=== PATIENT | male | born 1965 | race Hispanic/Latino ===

== ENCOUNTER 2016-12-20 20:09 | Emergency (ER) | payer MEDICAID ==
[2016-12-20 20:39] VITALS: TEMP 98.4; BMI 32.5
[2016-12-20 20:57] LABS: ADD MANUAL DIFF? NO
[2016-12-20 21:04] LABS: BASO # 0.01 K/mm3 (0.0-2.0); BASO % 0.1 % (0.0-3.0); EOS # 0.3 (0.0-0.7); EOS % 2.9 % (1.5-5.0); GRAN # 6.03 (1.4-6.5); GRAN % 61.6 % (50.0-68.0); HEMATOCRIT 43.6 % (42.0-52.0); LYMPH # 2.8 (1.2-3.4); LYMPH % 28.4 % (22.0-35.0); MEAN CELL VOLUME 93.4 fL (80.0-105.0); MEAN CORPUSCULAR HEMOGLOBIN 33.4 pg (25.0-35.0); MEAN CORPUSCULAR HGB CONC 35.8 g/dl (31.0-37.0); MEAN PLATELET VOLUME 8.9 fl (7.0-11.0); MONO # 0.7 (0.1-0.6); PLATELET COUNT 251 10^3/uL (120.0-450.0); RED CELL DISTRIBUTION WIDTH 12.7 % (11.5-14.5); WHITE BLOOD COUNT 9.8 10^3/ul (4.5-11.0)
[2016-12-20 21:12] LABS: URINE BILIRUBIN NEGATIVE (NEGATIVE); URINE BLOOD NEGATIVE (NEGATIVE); URINE GLUCOSE (UA) NEGATIVE (NEGATIVE); URINE KETONE NEGATIVE (NEGATIVE); URINE LEUKOCYTE ESTERASE NEGATIVE Leu/uL (NEGATIVE); URINE PROTEIN NEGATIVE mg/dL (<30 mg/dL); URINE UROBILINOGEN 0.2 E.U./dL (<1 E.U./dL)
[2016-12-20 21:14] LABS: ALB/GLOB RATIO 1.4 (1.1-1.8); ALKALINE PHOSPHATASE 121 U/L (38-133); ALT/SGPT 78 U/L (7-56); AST/SGOT 48 U/L (15-59); BILIRUBIN,TOTAL 0.5 mg/dL (0.2-1.3); BLOOD UREA NITROGEN 7 mg/dL (7-21); CALCIUM 9.6 mg/dL (8.4-10.5); CARBON DIOXIDE 22 mmol/L (21-33); CHLORIDE 105 mmol/L (98-107); GFR AFRICAN-AMERICAN > 60; GLUCOSE,RANDOM 95 mg/dL (70-110); POTASSIUM 3.9 mmol/L (3.6-5.0); SODIUM 141 mmol/L (132-148); URINE APPEARANCE CLEAR (CLEAR); URINE COLOR YELLOW (YELLOW)
--- NOTE | 2016-12-20 21:38 | ED PDOC ---
Arrival/HPI - General Historian: Patient, EMS - History of Present Illness Time/Duration: Prior to Arrival - General Chief Complaint: Psychiatric Evaluation Time Seen by Provider: 12/20/16 20:22 - History of Present Illness Narrative History of Present Illness (Text): 12/20/16 21:49 Patient is a 51 yo male presents to the Emergency Department with history of depression and "feeling like I need to end it". He states that he's "not sure if I feel sucidial" but feels as if he "can't take it". He states that he lost his job, has no money, can't pay his bills, and reportedly his brother called the ambulance for evaluation. He admits to drinking earlier in the day. Denies drug abuse. Denies any physical injury or falls. Denies overdose or suicidal attempts. Denies plan. He is a smoker. He has a history of hypertension but does not take medication. ( Horacio Granados) Past Medical History - Cardiac Hx Cardiac Disorders: Yes Hx Hypertension: Yes - Pulmonary Hx Respiratory Disorders: No (denies) - Neurological Hx Neurological Disorder: No (denies) - HEENT Hx HEENT Disorder: No (denies) - Renal Hx Renal Disorder: No (denies) - Endocrine/Metabolic Hx Endocrine Disorders: No (denies) - Hematological/Oncological Hx Blood Disorders: No (denies) - Integumentary Hx Dermatological Disorder: No (denies) - Musculoskeletal/Rheumatological Hx Musculoskeletal Disorders: No (denies) - Gastrointestinal Hx Gastrointestinal Disorders: Yes Hx Gastroesophageal Reflux: Yes - Genitourinary/Gynecological Hx Genitourinary Disorders: No (denies) - Psychiatric Hx Substance Use: Yes - Anesthesia Hx Anesthesia: No Family/Social History Family/Social History: Unknown Family HX Smoking Status: Heavy Smoker > 10 Cigarettes Daily Hx Alcohol Use: Yes Hx Substance Use: Yes Allergies/Home Meds Allergies/Adverse Reactions: Allergies No Known Allergies Allergy (Verified 12/20/16 20:40) Review of Systems - Review of Systems Constitutional: absent: Fevers Eyes: absent: Vision Changes ENT: absent: Hearing Changes Respiratory: absent: SOB Cardiovascular: absent: Chest Pain Gastrointestinal: absent: Abdominal Pain Genitourinary Male: absent: Frequency, Urinary Output Changes Musculoskeletal: absent: Arthralgias Skin: absent: Rash Neurological: absent: Headache, Dizziness, Focal Weakness Endocrine: absent: Polyuria Hemo/Lymphatic: absent: Easy Bleeding Psychiatric: Anxiety, Depression, Suicidal Ideation Physical Exam Vital Signs Reviewed: Yes Temperature: Afebrile Mental Status: Positive for: Alert and Oriented X 3, Agitated - Physical Exam Narrative Physical Exam (Text): Head: Atraumatic. Normocephalic. Eyes: PERRL. EOMI. Conjunctivae are not pale. ENT: Mucous membranes are moist and intact. Oropharynx is clear and symmetric. Neck: Supple. Full ROM. No JVD. No lymphadenopathy. Cardiovascular: Regular rate. Regular rhythm. No murmurs, rubs, or gallops. Distal pulses are 2+ and symmetric. Pulmonary/Chest: No evidence of respiratory distress. Clear to auscultation bilaterally. No wheezing, rales or rhonchi. Abdominal: Soft and non-distended. There is no tenderness. No rebound, guarding, or rigidity. No organomegaly. Good bowel sounds. Back: No CVA tenderness. No midline tenderness. Extremities: No edema. No cyanosis. No clubbing. Full range of motion in all extremities. No calf tenderness. Skin: Skin is warm and dry. No petechiae. No purpura. Neurological: Alert, awake, and oriented to person, place, time, and situation. No slurred speech. No facial droop. Motor and sensory exam intact. Not hyperreflexive. No pronator drift. No meningeal signs. Psychiatric: Patient is intermittently agitated and states "I'm going to lose it", but he is cooperative with verbal commands. Reports suicidal thoughts but no plan. Reports anxiety and depression. No hallucinations noted. 12/20/16 21:56 (Horacio Granados) Vital Signs Temp Pulse Resp BP Pulse Ox 12/21/16 11:16 80 16 164/88 H 98 12/21/16 09:15 82 16 139/80 96 12/21/16 07:16 72 16 145/85 98 12/21/16 02:30 105 H 20 163/96 H 95 12/21/16 01:40 95 H 16 142/76 95 12/20/16 22:25 107 H 16 135/48 L 98 12/20/16 22:00 114 H 16 142/87 97 12/20/16 20:09 98.4 F 99 H 18 146/85 94 L Medical Decision Making - EKG Interpretation Interpreted by ED Physician: Yes Type: 12 lead EKG Comparison: No previous EKG avail. ED Course and Treatment: 12/20/16 21:58 Patient on initial evaluation is cooperative but is threatening that he "wants to end it", but then states "I'm not sure if I'm suicidal". He admits to drinking but is alert and oriented with steady gait, normal speech, no motor or sensory deficits. He denies headache or chest pain or shortness of breath. He reports that he feels very angry but denies homicidal ideation. No family members present at bedside on initial evaluation. Patient denies past admissions of past known psychiatric history. He states that he feels as if he will walk out if he doesn't feel calmer. IV ativan ordered as patient increasingly agitated and attempted to put on clothes and leave before mental health evaluation and as he is increasingly difficulty to verbally follow commands to await pes evaluation. As he is at risk for suicidal thoughts/major depression, I have recommended psychiatric evaluation and ADMISSION. 12/20/16 23:14 One to one sitter ordered. Patient resting. Denies headache, chest pain or shortness of breath. CXR reviewed with patient recommended outpatient follow-up for re-evaluation as history of smoking, but currently no respiratory distress or wheezing. Denies chest pain. Awaiting PES evaluation. Case endorsed to Dr. Chaney pending PES evaluation. (Horacio Granados) - Lab Interpretations Lab Results: 12/20/16 20:25 12/20/16 20:25 Lab Results 12/20/16 23:36: Troponin I < 0.01 12/20/16 20:25: Alcohol, Quantitative 156 H 12/20/16 20:25: Salicylates < 1 L, Acetaminophen < 10.0 L 12/20/16 20:25: Urine Opiates Screen Negative, Urine Methadone Screen Negative, Ur Barbiturates Screen Negative, Ur Phencyclidine Scrn Negative, Ur Amphetamines Screen Negative, U Benzodiazepines Scrn Negative, U Oth Cocaine Metabols Negative, U Cannabinoids Screen Negative 12/20/16 20:25: Sodium 141, Potassium 3.9, Chloride 105, Carbon Dioxide 22, Anion Gap 18, BUN 7, Creatinine 0.9, Est GFR ( Amer) > 60, Est GFR (Non- Af Amer) > 60, Random Glucose 95, Calcium 9.6, Total Bilirubin 0.5, AST 48, ALT 78 H, Alkaline Phosphatase 121, Total Creatine Kinase 158, Total Protein 8.0, Albumin 4.6, Globulin 3.4, Albumin/Globulin Ratio 1.4 12/20/16 20:25: Urine Color Yellow, Urine Appearance Clear, Urine pH 6.0, Ur Specific Biggs <= 1.005, Urine Protein Negative, Urine Glucose (UA) Negative, Urine Ketones Negative, Urine Blood Negative, Urine Nitrate Negative, Urine Bilirubin Negative, Urine Urobilinogen 0.2, Ur Leukocyte Esterase Negative 12/20/16 20:25: WBC 9.8, RBC 4.67, Hgb 15.6, Hct 43.6, MCV 93.4, MCH 33.4, MCHC 35.8, RDW 12.7, Plt Count 251, MPV 8.9, Gran % 61.6, Lymph % (Auto) 28.4, Tucker % (Auto) 7.0 H, Eos % (Auto) 2.9, Baso % (Auto) 0.1, Gran # 6.03, Lymph # 2.8, Tucker # 0.7 H, Eos # 0.3, Baso # 0.01 - RAD Interpretation Radiology Orders: 12/20/16 21:54 CHEST PORTABLE [RAD] Stat - EKG Interpretation EKG Interpretation (Text): 12/20/16 23:15 EKG at 20:20 sinus tachycardia rate of 108 (Horacio Granados) - Medication Orders Current Medication Orders: Discontinued Medications Lorazepam (Ativan) 1 mg IVP STAT STA Stop: 12/20/16 21:09 Last Admin: 12/20/16 21:55 Dose: 1 mg Nicotine (Nicoderm Cq) 1 patch TD DAILY STA Stop: 12/21/16 08:27 Last Admin: 12/21/16 09:13 Dose: 1 patch Disposition/Present on Arrival - Present on Arrival Any Indicators Present on Arrival: No History of DVT/PE: No History of Uncontrolled Diabetes: No Urinary Catheter: No History of Decub. Ulcer: No History Surgical Site Infection Following: None - Disposition Have Diagnosis and Disposition been Completed?: Yes Disposition Time: 23:00 Patient Plan: Admission - Disposition Diagnosis: Depression, Abnormal chest xray Condition: SERIOUS Referrals: Dayo Wilson MD [Primary Care Provider] - Follow up with primary
--- NOTE | 2016-12-21 07:09 | ED PDOC ---
Physical Exam Vital Signs Temp Pulse Resp BP Pulse Ox 12/21/16 16:51 86 16 152/84 H 98 12/21/16 14:09 84 18 146/82 98 12/21/16 11:16 80 16 164/88 H 98 12/21/16 09:15 82 16 139/80 96 12/21/16 07:16 72 16 145/85 98 12/21/16 02:30 105 H 20 163/96 H 95 12/21/16 01:40 95 H 16 142/76 95 12/20/16 22:25 107 H 16 135/48 L 98 12/20/16 22:00 114 H 16 142/87 97 12/20/16 20:09 98.4 F 99 H 18 146/85 94 L Medical Decision Making ED Course and Treatment: 12/21/16 07:00 Patient signed out to me by Dr. Chaney. Awaiting [facility] screen[place]. 12/21/16 08:05 Patient reexamined, denies complaints. 12/21/16 08:[address] Albert from radiology who states that there is a lung nodule which needs follow up with an outpatient physician. Patient is informed and voiced understanding of finding and plan. 12/21/16 11:57 patient medically cleared for PES evaluation / psychiatric admission 12/21/16 17:40 informed by RN pt accepted and being transferred to [facility] pt aware of and agrees with plan - Lab Interpretations Lab Results: 12/20/16 20:25 12/20/16 20:25 Lab Results 12/20/16 23:36: Troponin I < 0.01 12/20/16 20:25: Alcohol, Quantitative 156 H 12/20/16 20:25: Salicylates < 1 L, Acetaminophen < 10.0 L 12/20/16 20:25: Urine Opiates Screen Negative, Urine Methadone Screen Negative, Ur Barbiturates Screen Negative, Ur Phencyclidine Scrn Negative, Ur Amphetamines Screen Negative, U Benzodiazepines Scrn Negative, U Oth Cocaine Metabols Negative, U Cannabinoids Screen Negative 12/20/16 20:25: Sodium 141, Potassium 3.9, Chloride 105, Carbon Dioxide 22, Anion Gap 18, BUN 7, Creatinine 0.9, Est GFR ( Amer) > 60, Est GFR (Non- Af Amer) > 60, Random Glucose 95, Calcium 9.6, Total Bilirubin 0.5, AST 48, ALT 78 H, Alkaline Phosphatase 121, Total Creatine Kinase 158, Total Protein 8.0, Albumin 4.6, Globulin 3.4, Albumin/Globulin Ratio 1.4 12/20/16 20:25: Urine Color Yellow, Urine Appearance Clear, Urine pH 6.0, Ur Specific Perkins <= 1.005, Urine Protein Negative, Urine Glucose (UA) Negative, Urine Ketones Negative, Urine Blood Negative, Urine Nitrate Negative, Urine Bilirubin Negative, Urine Urobilinogen 0.2, Ur Leukocyte Esterase Negative 12/20/16 20:25: WBC 9.8, RBC 4.67, Hgb 15.6, Hct 43.6, MCV 93.4, MCH 33.4, MCHC 35.8, RDW 12.7, Plt Count 251, MPV 8.9, Gran % 61.6, Lymph % (Auto) 28.4, Kent % (Auto) 7.0 H, Eos % (Auto) 2.9, Baso % (Auto) 0.1, Gran # 6.03, Lymph # 2.8, Kent # 0.7 H, Eos # 0.3, Baso # 0.01 - RAD Interpretation Radiology Orders: 12/20/16 21:54 CHEST PORTABLE [RAD] Stat - Medication Orders Current Medication Orders: Discontinued Medications Lorazepam (Ativan) 1 mg IVP STAT STA Stop: 12/20/16 21:09 Last Admin: 12/20/16 21:55 Dose: 1 mg Nicotine (Nicoderm Cq) 1 patch TD DAILY STA Stop: 12/21/16 08:27 Last Admin: 12/21/16 09:13 Dose: 1 patch - Scribe Statement The provider has reviewed the documentation as recorded by the Mary Wick Provider Scribe Attestation: All medical record entries made by the Adelaibstacy were at my direction and personally dictated by me. I have reviewed the chart and agree that the record accurately reflects my personal performance of the history, physical exam, medical decision making, and the department course for this patient. I have also personally directed, reviewed, and agree with the discharge instructions and disposition. Disposition/Present on Arrival - Present on Arrival Any Indicators Present on Arrival: No History of DVT/PE: No History of Uncontrolled Diabetes: No Urinary Catheter: No History of Decub. Ulcer: No History Surgical Site Infection Following: None - Disposition Have Diagnosis and Disposition been Completed?: Yes Diagnosis: Depression, Abnormal chest xray Disposition: Transfer [facility] Disposition Time: 17:42 Patient Plan: Transfer To ([facility]) Patient Problems: Current Active Problems Problem Status Onset Abnormal chest xray Acute Depression Acute Condition: STABLE Referrals: Dayo Wilson MD [Primary Care Provider] - Follow up with primary
--- NOTE | 2016-12-21 08:26 | RAD ---
HISTORY: pes evaluation, hx of smoking COMPARISON: None available. TECHNIQUE: Chest, one view. FINDINGS: LUNGS: No focal consolidation. Small nodular densities near the hilum compatible with prominent vessels on and rather then calcified granulomas. Faint indeterminate 8 mm nodular density is noted at the right midlung zone between the 7th and 8th posterior right ribs. Please note that chest x-ray has limited sensitivity for the detection of pulmonary masses. PLEURA: No significant pleural effusion identified. No definite pneumothorax . CARDIOVASCULAR: The cardiomediastinal silhouette appears within normal limits of size. OSSEOUS STRUCTURES: No acute osseous abnormality identified. VISUALIZED UPPER ABDOMEN: Unremarkable. OTHER FINDINGS: None. IMPRESSION: Faint indeterminate 8 mm nodular density is noted at the right midlung zone between the 7th and 8th posterior right ribs. Pulmonary in pulmonary nodule cannot be excluded. Outpatient CT recommended for further evaluation. Findings discussed with Dr. Smiley on 12/21/16 at 8:24 a.m..
[2016-12-21 11:17] VITALS: O2SAT 98
--- NOTE | 2016-12-21 15:53 | CARD ---
APPROVED REPORT EKG Measurement Heart [id number] <Conclusion> Sinus tachycardia Otherwise normal ECG
[2016-12-21 16:52] VITALS: BP 152/84; PULSE 86; RESP 16
== END 2016-12-21 17:45 | disposition short-term general hospital (02) ==
LOC: ED 20:09
DX: F32.9 Major depressive disorder, single episode, unspecified (principal); R91.8 Other nonspecific abnormal finding of lung field; I10 Essential (primary) hypertension; F17.210 Nicotine dependence, cigarettes, uncomplicated
CPT/HCPCS: 71010; 80053; 80320; 80324; 80329; 80345; 80346; 80349; 80353; 80358; 80361; 81003; 82550; 83992; 84484; 85025; 90791; 93005; 96374; 99285; J2060